=== PATIENT | male | born 1990 | race Two or more races ===

== ENCOUNTER 2025-03-06 22:10 | Emergency (ER) | payer MEDICAID ==
[~2025-03-06] VITALS: Ht 172.7 cm; Wt 110.0 kg
[~2025-03-06 22:10] MED LIST: CYCL-1 PO; HYDR-569 PO; ORPH100T4 PO; SUMA50TA PO
[2025-03-06 22:18] VITALS: BP 126/75; PULSE 86; RESP 14; O2SAT 96
--- NOTE | 2025-03-06 22:25 | Physician Documentation ---
History of Present Illness ~ Chief Complaint: Rash Stated Complaint: ABD PAIN Time Seen by MD: 22:32 OK to notify your PCP?: Yes Primary Medical Doctor: [facility] Source: patient Mode of Arrival: POV Exam Limitations: no limitations HPI 34-year-old male presents with red bumpy rash to penis in genital region. He reports that this rash showed up 2 days ago and is not itchy or painful or blistered. denies any other symptoms or any new sexual partners. He denies any penile discharge or urinary symptoms. He does report swimming in his home pool 2-3 days ago prior to rash. Medication Reconciliation Allergies: Coded Allergies: No Known Allergies (Unverified , 03/06/25) Scheduled Cyclobenzaprine* (Cyclobenzaprine*), 1 TAB PO TID Cyclobenzaprine* (Cyclobenzaprine*), 1 TAB PO HS Orphenadrine Citrate (Norflex), 100 MG PO BID Sumatriptan Succinate* (Imitrex*), 1 TABLET PO UD Scheduled PRN Hydrocodone Bit/Acetaminophen ([place] 5-325 Tablet), 1 TAB PO Q6H PRN for pain Past Medical History Past Medical History: Headache Past Surgical History: orthopedic surgeries Alcohol Use: Occasionally Drug Use: none Lives with: Mother Lives In: Home Occupation: disabled Review of Systems All Other Systems at this time: Reviewed and Negative Physical Exam Vital Signs: RN Vital Signs have been reviewed: Yes, Temperature: 97.9, Source: Temporal, Heart Rate: 86, Respiratory Rate: 14, BP: 126/75, Pulse Oximetry: 96, Weight: 110.000 Pulse Oximetry Reflects: adequate oxygenation Physical Exam General: Alert, no apparent distress. HEENT: PERRL, EOMI, no injection, moist mucous membranes. Neck: Full range of motion. Respiratory: Lungs clear, no respiratory distress. Chest: No accessory muscle use. Cardiovascular: Regular rate and rhythm, no murmurs. Gastrointestinal: Soft, nontender, nondistended. Bowels sounds present. Extremities: Normal range of motion, no deformity. Neurologic: Oriented x4. Psychiatric: Normal mood and affect. Skin: Normal color, warm and dry. No edema, no ecchymosis. Penile Discharge: none Glans: vesicles, ulcer(s), red, other (Erythematous maculopapular rash, no discharge seen.) Foreskin: normal inspection, able to retract Shaft: vesicles, ulcer(s), red, other (Erythematous maculopapular rash, no discharge seen.) Scrotum: normal inspection Epididymis: normal inspection Testicle: normal inspection Progress Results/Orders Reviewed/noted all lab results: Yes Results/Orders Completed Orders - IRAIS HODGE [employer] Cyclobenzaprine Tablet (Flexeril Tablet) (03/06/25 23:25) Ibuprofen Tablet (Motrin Tablet) (03/06/25 23:25) Medications Received in ER Medications (Trade) Dose Ordered Sig/Dustin Route PRN Reason Start Time Stop Time Status Last Admin Dose Admin (Flexeril tablet) 10 mg ONCE ONCE PO 03/06/25 23:25 03/06/25 23:47 DC 03/06/25 23:51 10 MG (Motrin tablet) 400 mg ONCE ONCE PO 03/06/25 23:25 03/06/25 23:47 DC 03/06/25 23:51 400 MG Vital Signs 03/06/25 03/06/25 22:18 23:33 Temp 97.9 97.9 Pulse 86 Resp 14 B/P (MAP) 126/75 Pulse Ox 96 Medical Decision Making Additional info obtained from: family Findings 34-year-old male presents with isolated rash to the shaft and glans of his penis which erupted 2 days ago. He does not have any pain or itching with this. He does not have any new sexual partners although his is 8 months at home. He has never had a rash like this before. He did go swimming in his home pool around the same time as the rash so it is unclear if this is contact dermatitis due to chlorine exposure or a possible viral illness such as herpes. The rash is maculopapular with a couple tiny ulcers seen as well as a couple tiny vesicles, the rash is dry and there is no drainage seen in the area. We discussed that this rash could be from either cause but there is no treatment needed at this time since he is otherwise asymptomatic. He should follow up with his primary care provider within the week to receive a full STD panel screening. He has not had any penile discharge or dysuria. I discussed this with his as well that she should follow up with her OB and mentioned this since she plans to deliver vaginally but she does not currently have any rash present. He can return back here for any new or worsening symptoms. Differential Dx:Considerations: Include: AIDS/HIV, Candidiasis, Erysipelas, Impetigo, Molluscum contagiosum, Psoriaisis, Urticaria Departure Disposition: 01 HOME / SELF CARE / HOMELESS Impression: Primary Impression: Skin irritation Additional Impression: Low back pain Condition: Stable Discharge Instructions: Rash, Adult Additional Instructions: As discussed this rash may be due to something from the swimming pool or chlorine and the head of the penis not being dried off properly after swimming or may be due to a viral infection such as herpes. Referrals: NO PRIMARY CARE PROVIDER (PCP) Prescriptions Cyclobenzaprine* (Cyclobenzaprine*) 10 Mg Tablet 1 TAB PO HS for muscle spasms for 10 Days, #10 TAB 0 Refills Prov: IRAIS HODGE 03/06/25 Education Educated: Patient Educated regarding: diagnosis, treatment, prognosis, need for follow up Additional Comment Medical Screen Exam This patient recieved a medical screening examination. After reviewing the individual's medical complaints with presenting symptoms and performing an appropriate physical examination, it was determined that no immediate life- threatening emergency medical condition is present. This individual is also not a women having contractions. Signature Scribe Signature: . Attestation: Scribed for Irais Hodge by Irais Santoro NP . 03/07/25 00:27 Parts of this note were created using [employer] voice recognition software program. While efforts were made to correct any mistakes made by this voice recognition software program, nonsensical phrases may remain in this note. In addition, there may be errors and syntax, grammar, content and spelling. Physical Exam Vital Signs: Temperature: 97.9, Source: Temporal, Heart Rate: 86, Respiratory Rate: 14, BP: 126/75, Pulse Oximetry: 96, Weight: 110.000 Glans: vesicles, ulcer(s), red, other (Erythematous papules) Foreskin: normal inspection, able to retract Shaft: vesicles, ulcer(s), red, other (Erythematous papules) Scrotum: normal inspection Epididymis: normal inspection Testicle: normal inspection Physical Exam Vital Signs: Temperature: 97.9, Source: Oral, Heart Rate: 86, Respiratory Rate: 14, BP: 126/75, Pulse Oximetry: 96, Weight: 110.000 Penile Discharge: none Glans: vesicles (Few vesicles seen), ulcer(s) (Few ulcers seen), other (Erythematous maculopapular rash, no discharge seen.) Foreskin: normal inspection, able to retract Shaft: vesicles, ulcer(s), other (Erythematous maculopapular rash, no discharge seen.) Scrotum: normal inspection Epididymis: normal inspection Testicle: normal inspection IRAIS HODGE [facility] Mar 06, 2025 22:25
[2025-03-06 23:33] VITALS: TEMP 97.9
[2025-03-06] MEDS ORDERED: CYCL-1 PO (23:35)
[2025-03-06] MEDS: ibuprofen tablet 400 MG TABLET PO ONE (23:51)
== END 2025-03-06 23:54 | disposition home or self-care (01) ==
LOC: ER 22:11
DX: R21 Rash and other nonspecific skin eruption (principal); M54.50 Low back pain, unspecified; Z79.899 Other long term (current) drug therapy; Z72.89 Other problems related to lifestyle
CPT/HCPCS: 99283

== ENCOUNTER 2025-07-02 10:23 | Emergency (ER) | payer MEDICAID ==
[~2025-07-02] VITALS: Ht 177.8 cm; Wt 104.2 kg
[2025-07-02 10:25] VITALS: BP 131/82; PULSE 105; RESP 18; TEMP 98.4; O2SAT 97
== END 2025-07-02 10:45 | disposition left against medical advice (07) ==
LOC: ER 10:24
DX: S61.412A Laceration without foreign body of left hand, initial encounter (principal); V89.2XXA Person injured in unspecified motor-vehicle accident, traffic, initial encounter; Y93.89 Activity, other specified; Y92.89 Other specified places as the place of occurrence of the external cause; Y99.8 Other external cause status
CPT/HCPCS: 99281